=== PATIENT | female | born 1980 | race Caucasian/White ===

== ENCOUNTER 2018-01-31 20:29 | Emergency (ER) | payer BC, OTHER ==
[2018-01-31 20:57] VITALS: BP 146/81
--- NOTE | 2018-01-31 21:39 | UC ---
Lower Extremity/Ankle HPI - HPI Summary HPI Summary: burning right foot pain with no injury worse in the morning and after she sits down for 1-2 hours - History of Current Complaint Chief Complaint: UCLowerExtremity Stated Complaint: RIGHT FOOT PAIN Time Seen by Provider: 01/31/18 21:23 Hx Obtained From: Patient Hx Last Menstrual Period: last wk of december ?: No Onset/Duration: Gradual Onset, Worse Since - today Pain Intensity: 8 Pain Scale Used: 0-10 Numeric Aggravating Factor(s): Standing Alleviating Factor(s): Nothing Able to Bear Weight: No - Allergies/Home Medications Allergies/Adverse Reactions: Allergies Allergy/AdvReac Type Severity Reaction Status Date / Time No Known Allergies Allergy Verified 01/31/18 20:48 Home Medications: Home Medications Cephalexin CAP* [Keflex CAP*] 500 mg PO TID 01/31/18 [History Confirmed 01/31/18 ] Loratadine 10 mg PO DAILY 01/31/18 [History Confirmed 01/31/18] Naproxen Sodium [Aleve] 440 mg PO DAILY PRN 01/31/18 [History Confirmed 01/31/18 ] PMH/Surg Hx/FS Hx/Imm Hx Previously Healthy: Yes - Surgical History Surgical History: Yes Surgery Procedure, Year, and Place: knee surgery 2003,1997, 2016. T&a 1998 - Family History Known Family History: Positive: None Family History: NON CONTRIBUTORY - Social History Occupation: Employed Full-time Lives: With Family Alcohol Use: Occasionally Substance Use Type: None Smoking Status (MU): Never Smoked Tobacco Review of Systems Constitutional: Negative Skin: Negative Eyes: Negative ENT: Negative Respiratory: Negative Cardiovascular: Negative Gastrointestinal: Negative Genitourinary: Negative Motor: Negative Neurovascular: Negative Musculoskeletal: Arthralgia - right foot pain Neurological: Negative Psychological: Negative Is Patient Immunocompromised?: No All Other Systems Reviewed And Are Negative: Yes Physical Exam Triage Information Reviewed: Yes Appearance: Well-Appearing, Well-Nourished, Pain Distress Vital Signs: Initial Vital Signs Temp 98.3 F 01/31/18 20:52 Pulse 83 01/31/18 20:52 Resp 16 01/31/18 20:52 BP 146/81 01/31/18 20:52 Pulse Ox 100 01/31/18 20:52 Vital Signs Reviewed: Yes Eye Exam: Normal Eyes: Positive: Conjunctiva Clear ENT Exam: Normal ENT: Positive: Normal ENT inspection, Hearing grossly normal. Negative: Nasal congestion, Nasal drainage, TMs normal, Trismus, Muffled voice, Hoarse voice Dental Exam: Normal Neck exam: Normal Neck: Positive: Supple, Nontender, No Lymphadenopathy Respiratory Exam: Normal Respiratory: Positive: Chest non-tender, No respiratory distress, No accessory muscle use Cardiovascular Exam: Normal Cardiovascular: Positive: RRR, Pulses Normal, Brisk Capillary Refill Musculoskeletal Exam: Normal Musculoskeletal: Positive: Strength Intact, ROM Intact, No Edema Neurological Exam: Normal Neurological: Positive: Alert, Muscle Tone Normal Psychological Exam: Normal Skin Exam: Normal Diagnostics - Radiology No standard instances Xray Interpretation: No Acute Changes Radiology Interpretation Completed By: ED Physician, Radiologist - Patient Name : TERRELL ALVAREZ Medical Record# : [id number] Ordering Physician: Carrie Montelongo NP Acct.#: [id number] : 1980 Age: 37 Sex: F Location: [facility]RGENT [facility] Exam Date: 2110 ADM Status: [facility] ER Order Information: FOOT RIGHT 3+ VWS Accession Number: [id number] CPT: 00797 INDICATION: Right foot injury. TECHNIQUE: 3 views of the right foot were obtained. FINDINGS: There is diffuse soft tissue swelling. There are rings on the second and fourth toes which could not be removed for the study. The bones are normal alignment. No fracture is seen. Joint spaces appear maintained. IMPRESSION: SOFT TISSUE SWELLING, NO FRACTURE IS SEEN. R0 ____ <Electronically signed by Ish Nugent MD in OV> 02/01/18736 Dictated By: Ish Nugent MD Dictated Date/Time: 02/01/18736 Transcribed Date/Time: 02/01/18733 Copy to: CC:Elizabeth Hopper MD; Carrie Montelongo NP; Clay Hillman MD Imaging - [facility] Imaging [facility] Urgent [facility] [address] [place] [address] [place] [address] ph ([phone]) ph ([phone]) ph ) This report is only to be considered final once signed by the Provider(s) as displayed in the "<Electronically Signed by >" field (s). Absence of a signature indicates the report is in a draft status and still needs to be finalized. In the event this document was created by someone other than the signing Provider, the individual initiating the document will be listed in the "Entered by:" or "Dictated by:" billingsley. 1 of 1 Lower Extremity Course/Dx - Course Course Of Treatment: cam boot, pain control, follow with orthopedic MD this week - Differential Dx/Diagnosis Provider Diagnoses: right plantar tendonitis, elevated blood pressure with out dx of hypertension Discharge - Sign-Out/Discharge Documenting (check all that apply): Patient Departure All imaging exams completed and their final reports reviewed: No - Discharge Plan Condition: Stable Disposition: HOME Patient Education Materials: Ibuprofen (By mouth), Plantar Fasciitis Exercises (GEN), Plantar Fasciitis (ED), Hypertension (ED) Forms: *Work Release Referrals: Tushar Hoang MD [Medical Doctor] - 1 Day YUMIKO Aguilar [Medical Doctor] - (or your primary care doctor for blood pressure recheck) - Billing Disposition and Condition Condition: STABLE Disposition: Home
[2018-01-31] MEDS ORDERED: HYDROcodone/ACETAMIN 5-325 MG* 1 TAB PO ONE (22:08)
--- NOTE | 2018-02-01 07:41 | RAD ---
INDICATION: Right foot injury. TECHNIQUE: 3 views of the right foot were obtained. FINDINGS: There is diffuse soft tissue swelling. There are rings on the second and fourth toes which could not be removed for the study. The bones are normal alignment. No fracture is seen. Joint spaces appear maintained. IMPRESSION: SOFT TISSUE SWELLING, NO FRACTURE IS SEEN. R0
--- NOTE | 2018-02-01 09:54 | UC ---
- Progress Note Progress Note: Patient Name: TERRELL ALVAREZ Medical Record#: [id number] Ordering Physician: Carrie Montelongo NP Acct.#: [id number] : 1980 Age: 37 Sex: F Location: [facility] Exam Date: 01/31/182110 ADM Status: [facility] ER Order Information: FOOT RIGHT 3+ VWS Accession Number: [id number] CPT: 00073 INDICATION: Right foot injury. TECHNIQUE: 3 views of the right foot were obtained. FINDINGS: There is diffuse soft tissue swelling. There are rings on the second and fourth toes which could not be removed for the study. The bones are normal alignment. No fracture is seen. Joint spaces appear maintained. IMPRESSION: SOFT TISSUE SWELLING, NO FRACTURE IS SEEN. R0 <Electronically signed by Ish Nugent MD in OV> 02/01/18736 Dictated By: Ish Nugent MD Dictated Date/Time: 02/01/18736 Transcribed Date/Time: 02/01/18733 Copy to: CC:Elizabeth Hopper MD; Carrie Montelongo NP; Clay Hillman MD Imaging - [facility] Urgent [facility] [address] [place] [address] ph ([phone]) ph ([phone]) ph ([phone]) This report is only to be considered final once signed by the Provider(s) as displayed in the "<Electronically Signed by >" field (s). Absence of a signature indicates the report is in a draft status and still needs to be finalized. In the event this document was created by someone other than the signing Provider, the individual initiating the document will be listed in the "Entered by:" or "Dictated by:" billingsley. 1 of 1 Discharge - Sign-Out/Discharge Documenting (check all that apply): Post-Discharge Follow Up All imaging exams completed and their final reports reviewed: Yes - Discharge Plan Condition: Stable Disposition: HOME Patient Education Materials: Ibuprofen (By mouth), Plantar Fasciitis Exercises (GEN), Plantar Fasciitis (ED), Hypertension (ED) Forms: *Work Release Referrals: Tushar Hoang MD [Medical Doctor] - 1 Day YUMIKO Aguilar [Medical Doctor] - (or your primary care doctor for blood pressure recheck) - Billing Disposition and Condition Condition: STABLE Disposition: Home
--- NOTE | 2018-02-03 12:03 | UC ---
Discharge - Sign-Out/Discharge Documenting (check all that apply): Post-Discharge Follow Up All imaging exams completed and their final reports reviewed: Yes - Discharge Plan Condition: Stable Disposition: HOME Patient Education Materials: Ibuprofen (By mouth), Plantar Fasciitis Exercises (GEN), Plantar Fasciitis (ED), Hypertension (ED) Forms: *Work Release Referrals: Tushar Hoang MD [Medical Doctor] - 1 Day YUMIKO Aguilar [Medical Doctor] - (or your primary care doctor for blood pressure recheck) - Billing Disposition and Condition Condition: STABLE Disposition: Home
== END 2018-01-31 22:21 | disposition home or self-care (01) ==
LOC: UCCORT 20:29
CPT/HCPCS: 99213; G0463

== ENCOUNTER 2019-06-07 18:19 | Emergency (ER) | payer BC, OTHER ==
[2019-06-07 18:48] VITALS: BP 136/76
--- NOTE | 2019-06-07 19:00 | UC ---
Throat Pain/Nasal Bob HPI - HPI Summary HPI Summary: 39 yo female presents with ear pain. She tells me that over the last 2-3 days has had sinus pain/pressure/congestion and ear fullness. Today it felt like her ears wanted to pop so she tried to equalize the pressure by holding her nose and blowing - felt a pop in her LEFT ear with immediate pain. Since that time has felt decreased hearing and pain in that ear. She has not taken anything OTC for her symptoms. Denies fever or cough. - History of Current Complaint Chief Complaint: UCEar Stated Complaint: SINUS COMPLAINT Time Seen by Provider: 06/07/19 18:59 Hx Obtained From: Patient Hx Last Menstrual Period: 05/18/19 Onset/Duration: Sudden Onset Severity: Moderate Pain Intensity: 5 - Allergies/Home Medications Allergies/Adverse Reactions: Allergies Allergy/AdvReac Type Severity Reaction Status Date / Time No Known Allergies Allergy Verified 06/07/19 18:42 PMH/Surg Hx/FS Hx/Imm Hx Psychological History: Anxiety, Depression - Surgical History Surgical History: Yes Surgery Procedure, Year, and Place: knee surgery 2003,1997, 2015. T&a 1998. Gastric Bypass 2018 - Family History Known Family History: Positive: Non-Contributory Family History: NON CONTRIBUTORY - Social History Occupation: Employed Full-time Lives: With Family Alcohol Use: None Substance Use Type: None Smoking Status (MU): Never Smoked Tobacco Review of Systems All Other Systems Reviewed And Are Negative: No Constitutional: Positive: Negative Skin: Positive: Negative Eyes: Positive: Negative ENT: Positive: Ear Ache, Sinus Congestion, Sinus Pain/Tenderness Respiratory: Positive: Negative Cardiovascular: Positive: Negative Gastrointestinal: Positive: Negative Neurological: Positive: Negative Psychological: Positive: Negative Physical Exam - Summary Physical Exam Summary: GENERAL: NAD. WDWN. No pain distress. SKIN: No rashes, sores, lesions, or open wounds. HEENT: Head: AT/NC Eyes: EOM intact. Conjunctiva clear without inflammation or discharge. Ears: Hearing grossly normal. LEFT TM with partial rupture at 5 o' clock position. No drainage or ear canal edema Nose: Nasal mucosa mildly swollen and erythematous with yellow/ clear discharge. TTP maxillary and frontal sinus. Positive post nasal drip Throat: Posterior oropharynx without exudates, erythema, or tonsillar enlargement. Uvula midline. NECK: Supple. Nontender. No lymphadenopathy. CHEST: CTAB. No r/r/w. No accessory muscle use. Breathing comfortably and in no distress. CV: RRR. Pulses intact. NEURO: Alert. PSYCH: Age appropriate behavior. Triage Information Reviewed: Yes Vital Signs: Initial Vital Signs Temp 97.1 F 06/07/19 18:43 Pulse 86 06/07/19 18:43 Resp 16 06/07/19 18:43 BP 136/76 06/07/19 18:43 Pulse Ox 100 06/07/19 18:43 Vital Signs Reviewed: Yes Throat Pain/Nasal Course/Dx - Course Course Of Treatment: Partial traumatic rupture of left tm. - Differential Dx/Diagnosis Provider Diagnosis: Tympanic membrane rupture, traumatic Discharge ED - Sign-Out/Discharge Documenting (check all that apply): Patient Departure All imaging exams completed and their final reports reviewed: No Studies - Discharge Plan Condition: Stable Disposition: HOME Prescriptions: Azithromycin TAB* [Zithromax TAB (Z-MARTHA) 250 mg #6 tabs] 2 tab PO .TODAY, THEN 1 DAILY #1 martha Fluticasone NASAL SPRAY 50MCG* [Flonase NASAL SPRAY 50MCG*] 2 spray BOTH NARES DAILY #1 btl guaiFENesin ER TAB [Mucinex*] 600 mg PO BID #14 tab.er Loratadine [Claritin] 10 mg PO DAILY #14 tablet Patient Education Materials: Ruptured Eardrum (ED), Rhinosinusitis (ED) Referrals: Laurie Stevens MD [Primary Care Provider] - Additional Instructions: If you develop a fever, shortness of breath, chest pain, new or worsening symptoms - please call your PCP or go to the ED immediately. You have a partial rupture of your ear drum that should heal with rest and time. If your sinus symptoms have not improved within 2-3 days --- may start the antibiotic - Billing Disposition and Condition Condition: STABLE Disposition: Home
== END 2019-06-07 19:22 | disposition home or self-care (01) ==
LOC: UCCORT 18:19
DX: H72.92 Unspecified perforation of tympanic membrane, left ear (principal); R09.81 Nasal congestion
CPT/HCPCS: 99212; G0463